=== PATIENT | male | born 1995 | race Caucasian/White ===

== ENCOUNTER 2024-09-30 07:43 | Outpatient (CLI) | payer BC, SELFPAY ==
[2024-09-30 08:09] LABS: Estimated Glomerular Filt Rate > 60
== END 2024-09-30 07:44 | disposition home or self-care (01) ==
LOC: CHSIMG 07:47
PROVIDERS: PCP Internal Medicine; Visit Provider Internal Medicine
DX: R19.7 Diarrhea, unspecified (principal); R10.84 Generalized abdominal pain
CPT/HCPCS: 99199

== ENCOUNTER 2024-10-01 08:52 | Outpatient (CLI) | payer BC, SELFPAY ==
--- NOTE | ~2024-10-01 | CT_ITS ---
EXAMINATION: CT abdomen pelvis w con DATE: 10/01/2024 09:15 INDICATION: Diarrhea and abdominal pain TECHNIQUE: Computed tomography (CT) of the abdomen and pelvis was performed with 100 cc Omnipaque 350 intravenous contrast. The dose-length product was 187.27 mGy-cm. Automated exposure control and iter ative reconstruction technique were employed. COMPARISON: None. FINDINGS: Lung bases unremarkable heart size normal. No significant pleural or pericardial effusion. There is a possible right UPJ stone, axial image 143. No significant hydronephrosis. Fatty infiltrati on of the liver. Small subcentimeter hypodensity right hepatic lobe, most likely benign cysts. The sp radha, pancreas, adrenal glands and kidneys are unremarkable. Gallbladder is present. Nonobstructive b owel gas pattern. Normal appendix. No acute osseous abnormality. IMPRESSION: 1. Possible 4 mm right UVJ stone versus phlebolith. Recommend correlation with CT urogram. Reviewed, dictated and finalized at location A.
== END 2024-10-01 08:53 | disposition home or self-care (01) ==
LOC: CHSIMG 08:54
PROVIDERS: PCP Internal Medicine; Visit Provider Internal Medicine
DX: R19.7 Diarrhea, unspecified (principal); R10.84 Generalized abdominal pain
CPT/HCPCS: 74177; Q9967

== ENCOUNTER 2024-12-10 07:12 | Outpatient (CLI) | payer BC, SELFPAY ==
[2024-12-12 07:09] LABS: Calprotectin, Fecal 64 ug/g (0-120)
== END 2024-12-10 07:13 | disposition home or self-care (01) ==
LOC: ANHLAB 07:13
PROVIDERS: PCP Internal Medicine; Visit Provider Nurse Practitioner Family
DX: R10.9 Unspecified abdominal pain (principal); R19.7 Diarrhea, unspecified
CPT/HCPCS: 83993